=== PATIENT | male | born 1980 | race Caucasian/White ===

== ENCOUNTER 2017-01-01 12:46 | Emergency (ER) | payer OTHER ==
[~2017-01-01] VITALS: Ht 180.3 cm; Wt 102.3 kg
[2017-01-01 12:53] VITALS: BP 161/94; TEMP 99
[2017-01-01] MEDS ORDERED: LEXAPRO 5MG5 MG PO (12:56)
[2017-01-01] MEDS ORDERED: PRIL40 PO (12:56)
[2017-01-01 13:51] LABS: BASO % 0.6 % (0.0-2.0); EOS # 0.1 (0.0-0.7); EOS % 1.8 % (0-4.0); GRAN # 4.3 (1.4-6.5); GRAN % 69.1 % (42.2-75.2); HEMATOCRIT 39.7 % (42.0-52.0); HEMOGLOBIN 13.8 g/dl (13.5-18.0); LYMPH # 1.4 (1.2-3.4); LYMPH % 22.7 % (20.0-51.0); MEAN CELL VOLUME 82 fl (80.0-100.0); MEAN CORPUSCULAR HEMOGLOBIN 29 pg (27.0-31.0); MEAN CORPUSCULAR HGB CONC 35 g/dl (33.0-37.0); MEAN PLATELET VOLUME 10.4 fl (7.4-10.4); MONO # 0.3 (0.1-0.6); MONO % 5.5 % (1.7-9.3); PLATELET COUNT 240 K/mm3 (130-400); RED BLOOD COUNT 4.83 M/mm3 (4.20-5.60); REDCELL DISTRIBUTION WIDTH-CV 12.9 % (11.5-14.5); WHITE BLOOD COUNT 6.2 K/mm3 (4.8-10.8)
[2017-01-01 13:55] LABS: PROTHROMBIN TIME 11.3 SECONDS (9.7-12.8)
[2017-01-01 13:58] LABS: PARTIAL THROMBOPLASTIN TIME 26.2 SECONDS (26.0-37.0)
[2017-01-01 14:05] LABS: CALCIUM 9.6 mg/dL (8.4-10.2); CREATININE, serum 0.76 mg/dL (0.66-1.25); POTASSIUM 4.1 mmol/L (3.4-5.0)
[2017-01-01] MEDS ORDERED: XARELTO15 MG PO (14:16)
[2017-01-01 14:36] VITALS: PULSE 60
== END 2017-01-01 14:37 | disposition home or self-care (01) ==
LOC: COL.ER 12:46
PROVIDERS: Physician Assistant
DX: I82.4Z2 Acute embolism and thrombosis of unspecified deep veins of left distal lower extremity (principal); Z98.52 Vasectomy status

== ENCOUNTER → 2017-01-01 | Outpatient (CLI) | payer OTHER ==
[~2017-01-01] MED LIST: LEXAPRO 5MG5 MG PO; PRIL40 PO; XARELTO15 MG PO
== END ==
LOC: ZCOL.LAB 10:02
DX: M79.605 Pain in left leg (principal)

== ENCOUNTER → 2017-01-01 | Outpatient (CLI) | payer OTHER | LOC: COL.VAS 11:47 | DX: I82.442 Acute embolism and thrombosis of left tibial vein (principal); R79.1 Abnormal coagulation profile ==

== ENCOUNTER 2020-10-07 11:10 | Emergency (ER) | payer OTHER ==
[~2020-10-07] VITALS: Ht 180.3 cm; Wt 102.3 kg
[2020-10-07 11:18] VITALS: TEMP 98.5
[2020-10-07 12:37] VITALS: BP 135/100; PULSE 84
== END 2020-10-07 12:37 | disposition home or self-care (01) ==
LOC: COL.ER 11:10
DX: S61.214A Laceration without foreign body of right ring finger without damage to nail, initial encounter (principal); D68.51 Activated protein C resistance; Z79.01 Long term (current) use of anticoagulants; W26.8XXA Contact with other sharp object(s), not elsewhere classified, initial encounter